=== PATIENT | female | born 1995 ===

== ENCOUNTER 2017-06-05 09:58 | Emergency (ER) | payer MEDICAID ==
[2017-06-05 10:05] VITALS: BP 111/70
--- NOTE | 2017-06-05 12:05 | Emergency Department Report ---
HPI - General Chief Complaint: Back Pain/Injury Time Seen by Provider: 06/05/17 11:59 - HPI HPI: Patient is a 22-year-old female who is approximately 18 weeks gestation who presents to ED complaining of lower right-sided back pain. She describes pain as intermittent, sharp, worsened with certain movements. 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 She states current visits to her [facility] and denies any complications such as vaginal bleed, discharge or any other problems. ED Past Medical Hx - Past Medical History Previous Medical History?: No - Surgical History Past Surgical History?: No - Social History Smoking Status: Never Smoker Substance Use Type: None - Medications Home Medications: Home Medications Medication Instructions Recorded Confirmed Last Taken Type Acetaminophen [Tylenol Extra 500 mg PO Q8H #40 tablet 06/05/17 Unknown Rx Strength] ED Review of Systems ROS: Stated complaint: CHEST/BACK PAIN Other details as noted in HPI Constitutional: denies: chills, fever Eyes: denies: eye pain, eye discharge, vision change ENT: denies: ear pain, throat pain Respiratory: denies: cough, shortness of breath, wheezing Cardiovascular: denies: chest pain, palpitations Endocrine: no symptoms reported Gastrointestinal: denies: abdominal pain, nausea, diarrhea Genitourinary: denies: urgency, dysuria, discharge Musculoskeletal: denies: back pain, joint swelling, arthralgia Skin: denies: rash, lesions Neurological: denies: headache, weakness, paresthesias Psychiatric: denies: anxiety, depression Hematological/Lymphatic: denies: easy bleeding, easy bruising Physical Exam - Physical Exam Vital Signs: Vital Signs 06/05/17 10:03 Temperature 98.4 F Pulse Rate 77 Respiratory 18 Rate Blood Pressure 111/70 O2 Sat by Pulse 100 Oximetry Physical Exam: GENERAL: Alert and oriented x3, no apparent distress, Normal Gait, atraumatic. HEAD: Head is normocephalic and a-traumatic. EYES: Pupils are equal, round, and reactive to light and accommodation. LUNGS: Symetrical with respiration, No wheezing, no rales or crackles, CTAB. HEART: S1, S2 present, regular rate and rhythm without murmur, no rubs, no gallops. Non tender to palpation ABDOMEN: Gravid,Positive bowel sounds, soft, and non-distended. Nontender to palpation on all Quadrants, NO CVA tenderness. BACK: Full range of motion, no spinal tenderness, nontender to palpation. EXTREMITIES/MUSCULOSKELETAL: No cyanosis, clubbing, rash, lesions or edema. Full ROM bilaterally. UE/LE Pulses 2+ bilaterally. NEUROLOGIC: The patient is cooperative with no focal neurologic deficits. SKIN: Warm and dry, No lesions, No ulceration or induration present. ED Course Vital Signs 06/05/17 10:03 Temperature 98.4 F Pulse Rate 77 Respiratory 18 Rate Blood Pressure 111/70 O2 Sat by Pulse 100 Oximetry ED Medical Decision Making - Medical Decision Making 22-year-old female presents with low back strain and ED course: Patient is in acute distress, able to walk and move appropriately without problems. Discussed with the patient to make sure she increases water intake daily. Discussed maternity support belt With the patient. Discussed the patient follow up with her [facility] Discussed with the patient Tylenol as needed for pain. Discussed with the patient that with lower back pain symptom. Patient understands her instructions and states will follow-up. Critical care attestation.: If time is entered above; I have spent that time in minutes in the direct care of this critically ill patient, excluding procedure time. ED Disposition Clinical Impression: Low back pain during Qualifiers: Trimester: second trimester Qualified Code(s): O26.892 - Other specified related conditions, second trimester; M54.5 - Low back pain Disposition: DC-01 TO HOME OR SELFCARE Is pt being admited?: No Does the pt Need Aspirin: No Condition: Stable Instructions: Low Back Strain (ED), Back Pain (ED) Additional Instructions: Make sure to follow up with the [facility]ER as discussed. Take all your medications as you've been prescribed. If you have any worsening symptoms or develop new symptoms please return to ED immediately. Prescriptions: Acetaminophen [Tylenol Extra Strength] 500 mg PO Q8H #40 tablet Referrals: PRIMARY CARE, [Primary Care Provider] - 3-5 Days [facility] [Provider Group] - 3-5 Days Forms: Work/School Release Form Time of Disposition: 12:13
== END 2017-06-05 12:26 | disposition home or self-care (01) ==
LOC: ED 09:58
DX: O26.892 Other specified pregnancy related conditions, second trimester (principal); M54.5 Low back pain; Z3A.18 18 weeks gestation of pregnancy
CPT/HCPCS: 99282

== ENCOUNTER 2019-01-27 11:03 | Outpatient (CLI) | payer MEDICAID ==
[2019-01-27 11:26] VITALS: BP 120/66
[2019-01-27] MEDS ORDERED: LACTATED RINGERS 500 ML IV ONE (12:09)
== END 2019-01-27 12:09 | disposition home or self-care (01) ==
LOC: TRG 11:03
PROVIDERS: ATTEND Obstetrics & Gynecology
DX: O47.03 False labor before 37 completed weeks of gestation, third trimester (principal); Z3A.35 35 weeks gestation of pregnancy
CPT/HCPCS: 59025